=== PATIENT | female | born 1965 | race Caucasian/White ===

== ENCOUNTER → 2016-12-20 | Day surgery (SDC) | payer OTHER ==
[~2016-12-20] VITALS: Ht 165.1 cm; Wt 68.0 kg
[~2016-12-20] MED LIST: 0.9% Sodium Chloride 1,000 ML IV SCH; LEVO75TA4 PO; Sodium Chloride LOK Flush 10 mL Syringe IV PRN; fentaNYL-PF 50 mCg/mL 2 mL Inj IVPUSH PRN
[2016-12-20 08:10] VITALS: BP 116/66; PULSE 67; RESP 16; O2SAT 97
[2016-12-20 08:54] VITALS: BP 106/69; PULSE 62; RESP 15; O2SAT 95
[2016-12-20 09:02] VITALS: BP 103/63; PULSE 59; RESP 15; O2SAT 94
[2016-12-20 09:13] VITALS: BP 104/72; PULSE 70; RESP 15; O2SAT 69
--- NOTE | 2016-12-20 09:43 | ENDO ---
[address] [address] ENDOSCOPY PROCEDURE PATIENT: BACILIO KWOK : 1965 MR#: [id number] ADMIT: 12/20/2016 JOB ID: [id number] DATE OF SERVICE: 12/20/2016 PROCEDURE PERFORMED: Colonoscopy. INDICATIONS: Screening. ASA CLASSIFICATION: The patient's ASA classification is I. MALLAMPATI SCORE: Mallampati score was 1. MEDICATIONS: 1. Versed 4 mg. 2. Fentanyl 75 mcg. INSTRUMENT USED: PCF-H180AL. PREPARATION QUALITY: Fair. PROCEDURE DETAILS: After informed consent was obtained, the patient was brought to the GI suite, where she was placed on oxygen via nasal cannula and monitored with continuous pulse oximeter, telemetry, and blood pressure monitoring. A time-out was performed. Then, she was placed in the left lateral decubitus position and medications were administered for sedation. Digital rectal exam was performed which was unremarkable. The colonoscope was then inserted into the rectum and advanced under direct visualization to the cecum, which was identified by the presence of the ileocecal valve and appendiceal orifice. Once the cecum was reached, the colonoscope was withdrawn back into the rectum, as the mucosa and lumen were examined. In the rectum, retroflexion was performed. Following retroflexion, remaining air in the rectum was suctioned, and procedure was completed. FINDINGS: A few scattered diverticula were seen in the ascending colon but otherwise normal exam from rectum to cecum. IMPRESSION: Scattered right-sided diverticula. RECOMMENDATIONS: 1. Repeat colonoscopy in 10 years. 2. Fiber-rich diet. 3. Follow up in GI clinic as needed. COMPLICATIONS: None. ESTIMATED BLOOD LOSS: Zero.
== END | disposition home or self-care (01) ==
LOC: END 00:55
PROVIDERS: ATTEND Internal Medicine Gastroenterology
DX: Z12.11 Encounter for screening for malignant neoplasm of colon (principal); K57.30 Diverticulosis of large intestine without perforation or abscess without bleeding; E07.9 Disorder of thyroid, unspecified; Z79.899 Other long term (current) drug therapy; Z88.2 Allergy status to sulfonamides
CPT/HCPCS: G0121; G0500; J2250; J3010; J7030